=== PATIENT | female | born 1935 | race Caucasian/White ===

== ENCOUNTER 2020-04-05 15:07 | Observation (INO) | payer MEDICARE ==
[~2020-04-05] VITALS: Ht 165.1 cm; Wt 75.5 kg
[2020-04-05 15:51] LABS: BASOPHILS % (AUTO) 0.5 % (0.0-5.0); EOSINOPHILS % (AUTO) 1.4 % (0.0-8.0); HEMATOCRIT 40.8 % (36-48); LYMPHOCYTES % (AUTO) 19.9 % (21.0-51.0); MEAN CORPUSCULAR HEMOGLOBIN 33.5 pg (27.0-33.0); MEAN CORPUSCULAR HGB CONC 36.3 g/dL (32.0-36.0); MEAN CORPUSCULAR VOLUME 92.3 fL (79-99); NEUTROPHILS % (AUTO) 68.7 % (40.0-77.0); PLATELET COUNT (AUTO) 277 K/uL (130-400); RED BLOOD CELL COUNT(AUTO) 4.42 MIL/uL (4.00-5.50); WHITE BLOOD COUNT (AUTO) 5.6 K/uL (4.8-10.8)
[2020-04-05 16:06] LABS: INR 0.93 (0.85-1.15); PARTIAL THROMBOPLASTIN TIME 25.8 SEC (26.3-35.5); PROTHROMBIN TIME 10.1 SEC (9.6-11.6)
[2020-04-05 16:08] LABS: CREATININE 0.9 mg/dL (0.5-1.5); POTASSIUM 4.3 mmol/L (3.5-5.1)
[2020-04-05 16:12] LABS: ALBUMIN 4.1 g/dL (3.5-5.0); BILIRUBIN,TOTAL 0.4 mg/dL (0.2-1.0); TOTAL PROTEIN, SERUM 7.5 g/dL (6.0-8.3)
[2020-04-05 16:28] LABS: B-TYPE NATRIURETIC PEPTIDE 50 pg/mL (0-100)
[2020-04-05] MEDS ORDERED: BISACODYL 10 MG SUPP.RECT RC ONE (17:13)
[2020-04-05] MEDS ORDERED: MAGNESIUM CITRATE 296 ML SOLUTION ONE (17:13)
[2020-04-05 18:40] LABS: APPEARANCE,URINE Clear (CLEAR); BILIRUBIN,URINE Negative (NEGATIVE); COLOR,URINE Yellow (YELLOW); GLUCOSE, URINE (UA) Negative (NEGATIVE); KETONES,URINE Negative (NEGATIVE); LEUKOCYTE ESTERASE ,URINE Trace (NEGATIVE); NITRATE,URINE Negative (NEGATIVE); OCCULT BLOOD,URINE Trace (NEGATIVE); PH,URINE 6.5 (5.0-8.0); PROTEIN,URINE Negative (NEGATIVE)
[2020-04-05 18:52] LABS: BACTERIA,URINE Few /HPF (None Seen); MUCUS,URINE Few LPF (None Seen); SQUAMOUS EPITHELIAL CELL,UR Few /HPF (0-2)
[2020-04-05] MEDS ORDERED: BISACODYL 5 MG TABLET.DR PO ONE (19:41)
[2020-04-05] MEDS ORDERED: 1/2 NORMAL SALINE 1,000 ML IV ONE (22:55)
[2020-04-05] MEDS ORDERED: PEG 3350/NA SULF,BICARB,CL/KCL 4000 ML SOLN ONE (23:44)
[2020-04-06] VITALS (7 sets, daily range): BP systolic 142–179; BP diastolic 77–94
[2020-04-06] MEDS ORDERED: PNEUMOCOCCAL VACCINE POLYVALENT 0.5 ML/VIAL [PPV] IM ONE (00:30)
--- NOTE | 2020-04-06 01:08 | NUR ---
ADMISSION PATIENT A/A/OX3. PT AMBULATES STEADILY W/O ANY ASSISTIVE DEVICES. ADMISSION DATABASE COMPLETED, ADMISSION PAPER WORK SIGNED, PLACED IN CHART. ORIENTED TO ROOM, CALL LIGHT, TELEPHONE. UPDATED PT ON MD ORDERS AND PLAN OF CARE- PT VERBALIZED AGREEMENT. HOME MEDICATIONS PLACED IN [facility]. MD ORDERS FAXED OVER TO PHARMACY. PT HAS NOT HAD A BOWEL MOVEMENT FOR THE PAST X10 DAYS. REPORTS TO TRYING HOME REMEDIES AND FAILED TO HAVE A BM. NO C/O PAIN, JUST MILD INTERMITTENT CRAMPS. BED LOCKED IN LOWEST POSITION. INFORMED PT TO USE CALL LIGHT BEFORE GETTING OUT OF BED. TEDS AND NON-SKID WERE APPLIED BILAT.
--- NOTE | 2020-04-06 01:13 | NUR ---
GOLYTELY ADMINISTERED PER ORDERS OF HALF A GALLON. PT LUCIEN WELL.
[2020-04-06] MEDS ORDERED: PEG 3350/NA SULF,BICARB,CL/KCL 4000 ML SOLN PO ONE (01:15)
[2020-04-06] MEDS: 1/2 NORMAL SALINE 1,000 ML IV SCH ×3 (01:15→17:15)
[2020-04-06] MEDS ORDERED: FLUT16H NASAL (03:30)
[2020-04-06] MEDS ORDERED: LEVO5TAB13 PO (03:30)
[2020-04-06] MEDS ORDERED: ROSU5TAB12 PO (03:30)
[2020-04-06] MEDS ORDERED: LISI-617 PO (03:30)
[2020-04-06] MEDS ORDERED: METO50TA18 PO (03:30)
[2020-04-06] MEDS ORDERED: PNEUMOCOCCAL VACCINE POLYVALENT 0.5 ML/VIAL [PPV] ONE (03:33)
--- NOTE | 2020-04-06 03:40 | NUR ---
DIGITAL DISIMPACTION ATTEMPTED TO MANUALLY DISIMPACT PT. BROW, WATERY FLUID RELEASED, UNABLE TO DISIMPACT FORMED STOOL. PT LUCIEN PROCEDURE WELL W/O ANY DISTRESS.
[2020-04-06 04:05] LABS: HEMATOCRIT 42.3 % (36-48); MEAN CORPUSCULAR VOLUME 94.4 fL (79-99); RED BLOOD CELL COUNT(AUTO) 4.48 MIL/uL (4.00-5.50); RED CELL DISTRIBUTION WIDTH 11.9 % (11.0-15.5); WHITE BLOOD COUNT (AUTO) 5.5 K/uL (4.8-10.8)
[2020-04-06 04:35] LABS: ALBUMIN 3.8 g/dL (3.5-5.0); BILIRUBIN,TOTAL 0.5 mg/dL (0.2-1.0); CREATININE 0.9 mg/dL (0.5-1.5); POTASSIUM 3.6 mmol/L (3.5-5.1); TOTAL PROTEIN, SERUM 7.4 g/dL (6.0-8.3)
--- NOTE | 2020-04-06 06:44 | NUR ---
Dion iqbal md rounded, spoke with pt at bedside. placed order for fleet enema. if enema fails, nurse to consult documentation coordinator GI dr. pt had no questions for the dr at this time.
--- NOTE | 2020-04-06 08:16 | NUR ---
ENEMA ADMINISTERED ENEMA ORDERED. PT ON LATERAL LEFT SIDE DURING PROCEDURE. INSTRUCTED PT TO HOLD ENEMA FOR A GOAL TIME OF 15 MINS. PT VERBALIZED IN AGREEMENT. PT LUCIEN PROCEDURE WELL. CAROLE CORDERO TO ASSUME PT CARE FOR THE PT TODAY.
--- NOTE | 2020-04-06 10:00 | NUR ---
HAS COMPLETED THE GALLON OF SHARDA.
--- NOTE | 2020-04-06 11:04 | NUR ---
PAGED DR. CHAN PER ORDER OF DR. HAN.
--- NOTE | 2020-04-06 14:00 | NUR ---
UP TO BEDSIDE COMMODE, FEELS URGE TO HAVE A BM BUT IS ONLY PASSING WATER
--- NOTE | 2020-04-06 14:44 | NUR ---
DCP CM met with pt discussed dc plans. Pt is independent prior to admission, lives at home alone, daughter lives in [place]. Denies any equipments/services. Feels safe to go back home, still drives, arranges own needs, verbalized daughter and friend able to assist with transportation as necessary once closer to dc. Declined placement. Uses [facility] pharmacy close to [facility]. DC plan to home once stable. CM to cont to follow up. Addendum: 04/06/20 at 1446 by JOSÉ ANTONIO FAJARDO LVN CM Amended: Links added.
--- NOTE | 2020-04-06 14:54 | NUR ---
DR. CHAN RETURNED CALL, ORDER TO REPEAT CT OF ABD/PELVIS WITHOUT CONTRAST.
--- NOTE | 2020-04-06 18:00 | NUR ---
HAS NOT YET BEEN SEEN BY GI. NO BM YET.
[2020-04-06] MEDS ORDERED: POTASSIUM CHLORIDE 20MEQ/100ML 100 ML IV PRN (23:00)
[2020-04-06] MEDS ORDERED: LIDOCAINE HCL-MPF 1% 2ML VIAL IV PRN (23:00)
[2020-04-06] MEDS ORDERED: POTASSIUM CHLORIDE 10% ELIXIR 20 MEQ/15 ML UDCUP PO PRN (23:00)
[2020-04-06] MEDS ORDERED: MAGNESIUM 2GM PREMIX 50ML 50 ML IV PRN (23:00)
[2020-04-07] VITALS (7 sets, daily range): BP systolic 123–159; BP diastolic 75–96
[2020-04-07 04:21] LABS: MAGNESIUM 2.1 mg/dL (1.80-2.40)
[2020-04-07] MEDS: POTASSIUM CHLORIDE 20 MEQ ERTAB PO PRN ×3 (04:43→23:43)
[2020-04-07] MEDS ORDERED: POLYETHYLENE GLYCOL 3350 17 GM POWD.PACK PO SCH (09:15)
[2020-04-07] MEDS ORDERED: SENNOSIDES 8.6 MG TABLET PO PRN (09:15)
--- NOTE | 2020-04-07 09:20 | NUR ---
ROCIO CALLED SPOKE TO DR. CHAN OVER THE PHONE REGARDING THE PATIENT'S STATUS. ROCIO SAID LONG SHE IS PASSING "GAS, LIQUID, OR STOOL" AND TOLERATES AN ADVANCED DIET SHE IS OK TO BE DISCHARGED FROM HIS STANDPOINT. NO FURTHER INTERVENTIONS ARE NEEDED AT THIS TIME, SINCE THE PT IS "CLEAR". MED ORDERS WERE GIVEN AND PLACED IN [facility]. REPORT WAS GIVEN TO CAROLE JACQUES.
--- NOTE | 2020-04-07 09:26 | NUR ---
POTASSIUM REPLACEMENT PATIENT POTASSIUM LEVEL WAS A 3.0- POTASSIUM PROTOCOL IMPLEMENTED AND REPLACEMENT IV INITIATED AND X1 PO K+ ADMIN. 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
[2020-04-07] MEDS ORDERED: POLYETHYLENE GLYCOL 3350 17 GM POWD.PACK PO PRN (09:30)
--- NOTE | 2020-04-07 10:25 | NUR ---
ASSUMED CARE PT IS SLEEPING WITH EYES CLOSED, NO DISTRESS NOTED.
[2020-04-07] MEDS: DOCUSATE SODIUM 100 MG CAP PO SCH (13:50)
--- NOTE | 2020-04-07 14:00 | NUR ---
CARE TAKEN OVER BY ME AT THIS TIME. SHIFT ASSESSMENT DONE. STATES STILL NO BM. ABD. SL. DISTENDED, SOFT AND HAS VERY ACTIVE BOWEL SOUNDS.
--- NOTE | 2020-04-07 19:37 | NUR ---
DR. HAN NOT COMFORTABLE DISCHARGING PT. YET. WANTS GI RE CONSULTED. PAGED DR. CHAN, LEFT PHONE [phone].
--- NOTE | 2020-04-07 19:51 | NUR ---
DR. CHAN RETURNED CALL. STATES HE LOOKED AT IMAGES AND ALL THERE IS WATER, KEEP PT. OVERNIGHT AND GIVE DIET AGAIN IN AM. DISCHARGE AFTER THAT.
[2020-04-07] MEDS: 1/2 NORMAL SALINE 1,000 ML IV SCH (23:29)
--- NOTE | 2020-04-08 08:20 | NUR ---
PER DR. CONI ESPINO TO D/C HOME
[2020-04-08] MEDS ORDERED: FLUTICASONE PROPIONATE 50MCG/SPRAY 16 GM BOTTLE EN SCH (09:00)
[2020-04-08] MEDS ORDERED: METOPROLOL TARTRATE 50 MG TAB PO SCH (09:00)
[2020-04-08] MEDS ORDERED: LISINOPRIL 5 MG TABLET PO SCH (09:00)
[2020-04-08] MEDS: DOCUSATE SODIUM 100 MG CAP PO SCH (09:15)
[2020-04-08 10:03] VITALS: BP 133/70
[2020-04-08 12:47] VITALS: BP_SYST 134; BP_SYST 164; BP_DIAS 80; BP_DIAS 87
--- NOTE | 2020-04-08 16:00 | NUR ---
PATIENT GIVEN DISCHARGE INSTRUCTION AND VERBALIZED UNDERSTANDING, TELEMETRY UNIT NOTIFIED AND UNIT REMOVED, IV DISCONTINUE WITH CATHETER INTACT AND SITE DRESSED, REVIEWED MEDICATIONS, EDUCATIONS AND FOLLOW-UP APPOINTMENTS. NO QUESTIONS OR CONCERNS AT THIS TIME, PATIENT DENIES PAIN AT THIS TIME. PATIENT TAKING BY WHEELCHAIR TO ER LOBBY AND LOADED INTO DAUGHTER CAR AND LEFT FOR HOME.
[2020-04-08] MEDS ORDERED: CETIRIZINE HCL 5 MG TABLET PO SCH (21:00)
[2020-04-08] MEDS ORDERED: ATORVASTATIN CALCIUM 10 MG TABLET PO SCH (21:00)
== END 2020-04-08 15:55 | disposition home or self-care (01) ==
LOC: EDH 15:07 → EDHIP 20:41 → 3BH 22:55
PROVIDERS: ADMIT Internal Medicine; ATTEND Internal Medicine
DX: K56.41 Fecal impaction (principal); I10 Essential (primary) hypertension; E78.00 Pure hypercholesterolemia, unspecified; Z23 Encounter for immunization
CPT/HCPCS: 36415 ×4; 71045; 74176 ×2; 80053 ×2; 81001; 82150; 82550; 83690; 83735; 83880; 84132 ×2; 84484; 85025; 85027; 85610; 85730; 90732; 93005; 96374; 99285; A4510; G0009; G0378 ×5; J3480; J3490

== ENCOUNTER 2022-04-21 10:52 | Emergency (ER) | payer MEDICARE ==
[~2022-04-21] VITALS: Ht 165.1 cm; Wt 81.6 kg
[~2022-04-21 10:52] MED LIST: FLUT16H NASAL; LEVO5TAB13 PO; LISI5TAB21 PO; METO50TA18 PO; ROSU5TAB12 PO
[2022-04-21] MEDS ORDERED: LIDOCAINE 5% TOPICAL PATCH TP ONE ×2 (12:09→12:30)
[2022-04-21] MEDS ORDERED: MORPHINE 4 MG SYG IM ONE (15:30)
[2022-04-21] MEDS ORDERED: TRAM50TA4 PO (15:41)
[2022-04-21 15:58] VITALS: BP 143/83
== END 2022-04-21 16:06 | disposition home or self-care (01) ==
LOC: EDH 10:52
DX: S22.069A Unspecified fracture of T7-T8 vertebra, initial encounter for closed fracture (principal); M81.0 Age-related osteoporosis without current pathological fracture; J44.9 Chronic obstructive pulmonary disease, unspecified; E78.00 Pure hypercholesterolemia, unspecified; I10 Essential (primary) hypertension; Z88.8 Allergy status to other drugs, medicaments and biological substances; Z98.890 Other specified postprocedural states; X58.XXXA Exposure to other specified factors, initial encounter; Y93.89 Activity, other specified; Y92.89 Other specified places as the place of occurrence of the external cause; Y99.8 Other external cause status
CPT/HCPCS: 71250; 96372; 99285; J2270

== ENCOUNTER → 2022-04-25 | Outpatient (CLI) | payer MEDICARE ==
[~2022-04-25] MED LIST changes: +TRAM50TA4 PO
== END | disposition home or self-care (01) ==
LOC: RAH 15:30
PROVIDERS: ATTEND Family Medicine
DX: S22.030A Wedge compression fracture of third thoracic vertebra, initial encounter for closed fracture (principal); S22.060A Wedge compression fracture of T7-T8 vertebra, initial encounter for closed fracture; T14.8XXA Other injury of unspecified body region, initial encounter; M47.814 Spondylosis without myelopathy or radiculopathy, thoracic region; X58.XXXA Exposure to other specified factors, initial encounter; Y93.89 Activity, other specified; Y92.89 Other specified places as the place of occurrence of the external cause; Y99.8 Other external cause status
CPT/HCPCS: 71110; 72070

== ENCOUNTER 2023-08-04 14:08 | Emergency (ER) | payer MEDICARE ==
[~2023-08-04] VITALS: Ht 154.9 cm; Wt 75.3 kg
[2023-08-04 14:52] VITALS: BP 156/93; PULSE 76; RESP 16; O2SAT 96
== END 2023-08-04 18:16 | disposition left against medical advice (07) ==
LOC: EDH 14:08
DX: R10.9 Unspecified abdominal pain (principal); Z53.21 Procedure and treatment not carried out due to patient leaving prior to being seen by health care provider